=== PATIENT | male | born 1960 | race Caucasian/White ===

== ENCOUNTER → 2016-10-06 | Outpatient (CLI) | payer BC ==
[~2016-10-06] VITALS: Ht 180.3 cm; Wt 113.2 kg
[~2016-10-06] MED LIST: ASPI1TAB PO; ATOR1TAB18 PO; GLUC1CAP10 PO; LIDOCAINE 2% INJ 100 MG/5 ML SDV (FOR ANES.) As Ordered ONE; LORA10TA2 PO; LOSA50TA20 PO; METO50TA2 PO; MUCI600T34 PO; MULT1TAB10 PO; NS 1,000 ML IV SCH; PROPOFOL 200 MG/20 ML VIAL As Ordered ONE
--- NOTE | 2016-10-06 12:21 | ROOR ---
Patient Name: Anthony Chin Procedure Date: 10/06/2016 12:07 PM Date of : 1960 Age: 56 Room: [facility] Gender: Male Note Status: Finalized Procedure: Colonoscopy Indications: Screening for colorectal malignant neoplasm Providers: Rafa MAS MD Referring MD: PADMINI BELL MD Requesting Provider: Medicines: Monitored Anesthesia Care Complications: No immediate complications. Procedure: Pre-Anesthesia Assessment: - The heart rate, respiratory rate, oxygen saturations, blood pressure, adequacy of pulmonary ventilation, and response to care were monitored throughout the procedure. The Colonoscope was introduced through the anus and advanced to the terminal ileum, with identification of the appendiceal orifice and IC valve. The colonoscopy was performed without difficulty. The patient tolerated the procedure well. The quality of the bowel preparation was good. Findings: The perianal and digital rectal examinations were normal. (Exam: Complete, Prep: Good or Excellent.) The entire examined colon appeared normal on direct and retroflexion views. Impression: - (Exam: Complete, Prep: Good or Excellent.) - The colon is normal on direct and retroflexion views. - No specimens collected. Recommendation: - Repeat colonoscopy in 10 years for screening purposes. Rafa Mas MD Rafa MAS MD 10/06/2016 12:21:32 PM This report has been signed electronically. Number of Addenda: 0 Note Initiated On: 10/06/2016 12:07 PM Estimated Blood Loss: Estimated blood loss: none.
[2016-10-06 12:56] VITALS: BP 146/88
== END ==
LOC: M OPP 10:12
PROVIDERS: ATTEND Internal Medicine Gastroenterology
DX: Z12.11 Encounter for screening for malignant neoplasm of colon (principal); I10 Essential (primary) hypertension; E78.5 Hyperlipidemia, unspecified; G47.30 Sleep apnea, unspecified; I25.10 Atherosclerotic heart disease of native coronary artery without angina pectoris; R06.83 Snoring; L82.1 Other seborrheic keratosis; Z95.5 Presence of coronary angioplasty implant and graft; Z80.0 Family history of malignant neoplasm of digestive organs; Z80.8 Family history of malignant neoplasm of other organs or systems; Z88.0 Allergy status to penicillin; Z88.8 Allergy status to other drugs, medicaments and biological substances; Z79.82 Long term (current) use of aspirin; Z79.899 Other long term (current) drug therapy
CPT/HCPCS: 99156; G0121

== ENCOUNTER → 2017-07-27 | Outpatient (CLI) | payer BC ==
[~2017-07-27] MED LIST changes: -ATOR1TAB18 PO; +ATOR80TA59 PO; -LIDOCAINE 2% INJ 100 MG/5 ML SDV (FOR ANES.) As Ordered ONE; -METO50TA2 PO; +METO50TA7 PO; -MUCI600T34 PO; +MUCI600T37 PO; -NS 1,000 ML IV SCH; -PROPOFOL 200 MG/20 ML VIAL As Ordered ONE
--- NOTE | 2017-07-27 17:55 | REP ---
Clinical: Pain. Technique: Internal rotation, external rotation, and Y view of the right shoulder. Findings: Cortical irregularity and inferior spurring at the acromioclavicular joint is appreciated. The glenohumeral joint is intact although mild blunting to the glenoid rim is suggested. Subacromial space is normal. No periarticular calcifications are identified. There is no acute fracture or dislocation. Impression: Mild arthritic degenerative changes. Signed by Bryan Sheets MD 07/27/2017 05:46 P
== END ==
LOC: M RAD 17:28
PROVIDERS: ATTEND Family Medicine
DX: M19.011 Primary osteoarthritis, right shoulder (principal)

== ENCOUNTER → 2017-12-22 | Outpatient (CLI) | payer BC ==
[2017-12-22 09:03] LABS: ALBUMIN/GLOBULIN RATIO 1.18 (1.00-1.93); ALKALINE PHOSPHATASE 84 U/L (45-117); ALT/SGPT 31 U/L (12-78); AST/SGOT 28 U/L (7-37); BILIRUBIN,DIRECT 0.3 MG/DL (0.0-0.2); CHOLESTEROL LEVEL 91 MG/DL (<200); CHOLESTEROL RISK RATIO 2.333 (<5); HDL CHOLESTEROL 39 MG/DL (>40); LDL CHOLESTEROL 34.8 MG/DL (<100); NON-HDL-C 52 MG/DL; TOTAL PROTEIN 7.4 GM/DL (6.4-8.2); TRIGLYCERIDES LEVEL 86 MG/DL (<150)
== END ==
LOC: M LAB 07:57
DX: E78.2 Mixed hyperlipidemia (principal)
CPT/HCPCS: 80076